=== PATIENT | female | born 1965 | race Caucasian/White ===

== ENCOUNTER 2021-12-08 13:52 | Emergency (ER) | payer OTHER, SELFPAY ==
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
[2021-12-08 14:15] VITALS: BP 132/81; PULSE 83; RESP 20; TEMP 36.1; O2SAT 99
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
[2021-12-08] MEDS: HYDROcodone/acetaminophen (*CRX) 5-325 MG TABLET 1 TAB PO (14:50)
[2021-12-08 15:38] VITALS: BP 134/89; PULSE 80; RESP 20; TEMP 36.7; O2SAT 99
== END 2021-12-08 15:40 | disposition home or self-care (01) ==
PROVIDERS: Emergency Provider Family Medicine
DX: S13.4XXA Sprain of ligaments of cervical spine, initial encounter (principal); S06.0X9A Concussion with loss of consciousness of unspecified duration, initial encounter; V89.2XXA Person injured in unspecified motor-vehicle accident, traffic, initial encounter
CPT/HCPCS: 70450; 72125; 99284; A9270; L0150